=== PATIENT | male | born 1950 | race Caucasian/White ===

== ENCOUNTER → 2023-11-27 07:01 | Outpatient (REF) | payer MEDICARE, SELFPAY | LOC: RCS 07:01 | PROVIDERS: ATTENDING PHYSICIAN Internal Medicine Cardiovascular Disease; FAMILY PHYSICIAN Family Medicine | DX: G45.9 Transient cerebral ischemic attack, unspecified (principal) | CPT/HCPCS: 93306 ==

== ENCOUNTER → 2023-12-24 08:50 | Outpatient (REF) | payer MEDICARE, SELFPAY | LOC: RAD 08:50 | PROVIDERS: ATTENDING PHYSICIAN Family Medicine | DX: K21.9 Gastro-esophageal reflux disease without esophagitis (principal); R14.2 Eructation | CPT/HCPCS: 74246 ==

== ENCOUNTER → 2024-12-19 11:51 | Outpatient (REF) | payer MEDICARE, SELFPAY | LOC: PAVMRI 11:51 | PROVIDERS: ATTENDING PHYSICIAN Specialist; PRIMARYCARE PHYSICIAN Family Medicine | DX: M25.511 Pain in right shoulder (principal) | CPT/HCPCS: 73221 ==